=== PATIENT | male | born 1965 ===

== ENCOUNTER 2017-05-06 11:38 | Emergency (ER) | payer OTHER ==
[2017-05-06 12:08] VITALS: BP 139/92
[2017-05-06] MEDS ORDERED: Ibuprofen TAB* 600 MG PO ONE (12:40)
--- NOTE | 2017-05-06 12:46 | UC ---
Butch Singh Nilda, scribed for Angela Camacho MD on 05/06/17 at 1240 . Lower Extremity/Ankle HPI - HPI Summary HPI Summary: This patient is a 52 year old M presenting to [facility] [place] with a chief complaint of constant RLE and R-ankle pain, erythema, and ecchymosis s/p hitting right hunter on shopping cart 2 weeks ago. The patient rates the aching pain 3/10 in severity. Symptoms aggravated by palpation and alleviated by nothing. Patient reports hes able to bear weight on RLE. Pt states no daily medications and that he has not taken anything for pain. Patients medication reviewed this visit. - History of Current Complaint Chief Complaint: UCLowerExtremity Stated Complaint: LEG INJURY Time Seen by Provider: 05/06/17 12:27 Hx Obtained From: Patient Onset/Duration: Sudden Onset, Lasting Weeks, Still Present Severity Currently: Mild Pain Intensity: 3 Pain Scale Used: 0-10 Numeric Aggravating Factor(s): Other - palpation Alleviating Factor(s): Nothing Able to Bear Weight: Yes - Allergies/Home Medications Allergies/Adverse Reactions: Allergies Allergy/AdvReac Type Severity Reaction Status Date / Time Sulfa (Sulfonamide Allergy Itching Verified 05/06/17 11:58 Antibiotics) PMH/Surg Hx/FS Hx/Imm Hx Previously Healthy: Yes Respiratory History: COPD - Surgical History Surgical History: None - Family History Known Family History: Positive: Cardiac Disease, Diabetes - Social History Occupation: Employed Full-time Lives: With Family Alcohol Use: Occasionally Substance Use Type: None Smoking Status (MU): Never Smoked Tobacco Review of Systems Skin: Bruising - right hunter, Other - right hunter erythema Musculoskeletal: Other: - right ankle pain, RLE pain, able to bear weight All Other Systems Reviewed And Are Negative: Yes Physical Exam Triage Information Reviewed: Yes Appearance: Well-Appearing, No Pain Distress, Well-Nourished Vital Signs: Initial Vital Signs Temp 98.4 F 05/06/17 12:00 Pulse 69 05/06/17 12:00 Resp 16 05/06/17 12:00 BP 139/92 05/06/17 12:00 Pulse Ox 98 05/06/17 12:00 Vital Signs Reviewed: Yes Eye Exam: Normal Eyes: Positive: Conjunctiva Clear ENT: Positive: Hearing grossly normal Neck exam: Normal Neck: Positive: Supple, Nontender, No Lymphadenopathy Respiratory Exam: Normal Respiratory: Positive: Chest non-tender, Lungs clear, Normal breath sounds, No respiratory distress, No accessory muscle use Cardiovascular Exam: Normal Cardiovascular: Positive: RRR, No Murmur, Other: - 2+ PT, DP foot warm Abdominal Exam: Normal Abdomen Description: Positive: Nontender, No Organomegaly, Soft Bowel Sounds: Positive: Present Musculoskeletal: Positive: Other: - + SLE + flex/ext knee + flex/ext ankle, great toe Pt with discomfort anterior, medial lower hunter to medial aspect of ankle. mild calf pain + edema distal, medial leg and medial ankle Neurological Exam: Normal Neurological: Positive: Alert Psychological Exam: Normal Skin: Positive: Other - + erythema anterior, distal hunter + mild ecchymosis medial ankle Diagnostics - Radiology Right lower leg XR Radiology Interpretation Completed By: Radiologist - Right Lower Leg XR, per radiologist, reveals normal right lower leg radiograph. If the patients symptoms persist, follow up imaging is recommended. Dr. Camacho has reviewed this radiology report. Venous Doppler Radiology Interpretation Completed By: Radiologist - Venous Doppler, per radiologist, reveals normal examination. No evidence of DVT. Dr. Camacho has reviewed this radiology report. Re-Evaluation - Re-Evaluation First Eval Re-Evaluation Time: 14:06 Comment: Reviewed imaging results, treatment plan, and D/C plan with pt. Place a stirrup splint - pt reports improvement of discomfort Lower Extremity Course/Dx - Course Course Of Treatment: Blood pressure noted and patient informed to follow up with PCP. Pt with discomfort anterior hunter, distal hunter and medial ankle. analgesia. u/s. imaging. reassess - Differential Dx/Diagnosis Provider Diagnoses: leg contusion Discharge - Sign-Out/Discharge Documenting (check all that apply): Discharge - Discharge Plan Condition: Stable Disposition: HOME Prescriptions: DOXYcycline CAP(*) [DOXYcycline 100MG CAP(*)] 100 mg PO BID #14 cap Patient Education Materials: Cellulitis (ED), Contusion in Adults (ED) Referrals: Masood Drew MD [Primary Care Provider] - Additional Instructions: - Okay to alternate ibuprofen (advil, motrin) and tylenol every 3 hours for pain - elevate your leg to help with swelling and pain - take antibiotics daily as prescribed - wear splint for support - Contact your doctor to schedule a follow-up appointment. Contact your doctor or return with questions or concerns - Billing Disposition and Condition Condition: STABLE Disposition: HOME The documentation as recorded by the Butch antonio Nilda accurately reflects the service I personally performed and the decisions made by , Angela Camacho MD.
--- NOTE | 2017-05-06 13:21 | RAD ---
INDICATION: Pain and swelling. COMPARISON: None TECHNIQUE: Duplex interrogation of the Lowerextremity was performed. FINDINGS: Deep veins: The common femoral, great saphenous, profunda femoris, proximal, mid, and distal deep femoral, popliteal, posterior tibial, and peroneal veins are patent. There is normal compressibility, augmentation, and phasic flow. Superficial veins: There are no findings of superficial thrombophlebitis. Popliteal fossa:There is no evidence of a popliteal cyst. Soft tissues:There are no soft tissue abnormalities. IMPRESSION: Normal examination. No evidence of deep venous thrombosis
--- NOTE | 2017-05-06 13:37 | RAD ---
Indication: Pain and swelling along the right lower leg 2 weeks after injury Comparison: None. Technique: AP and lateral views right lower leg. Report: The visualized bones are adequately corticated and well aligned. There is no acute fracture, dislocation or other focal abnormality. The soft tissues appear grossly normal. IMPRESSION: Normal right lower leg radiograph. If the patient's symptoms persist, follow-up imaging is recommended.
== END 2017-05-06 14:22 | disposition home or self-care (01) ==
LOC: UCEAST 11:38
DX: S80.11XA Contusion of right lower leg, initial encounter (principal); W22.8XXA Striking against or struck by other objects, initial encounter; Y93.89 Activity, other specified; Y92.512 Supermarket, store or market as the place of occurrence of the external cause; Y99.9 Unspecified external cause status; M79.89 Other specified soft tissue disorders; J44.9 Chronic obstructive pulmonary disease, unspecified; Z88.2 Allergy status to sulfonamides
CPT/HCPCS: 99212; A9270-GY; G0463